=== PATIENT | male | born 1960 | race Caucasian/White ===

== ENCOUNTER 2022-03-18 14:54 | Emergency (ER) | payer OTHER, SELFPAY ==
--- NOTE | ~2022-03-18 | XR_ITS ---
EXAMINATION: XR knee LT min 4V DATE: 03/18/2022 16:00 INDICATION: Left knee pain TECHNIQUE: Five views of the left knee were obtained. COMPARISON: None. FINDINGS: Alignment is normal. No fracture or osteochondral lesion. Joint spaces are normal with no e rosions. No joint effusion/synovitis. There is soft tissue swelling of the knee. IMPRESSION: 1. Soft tissue swelling without acute osseous abnormality. Reviewed, dictated and finalized at location A.
[2022-03-18 15:06] VITALS: BP 128/76; PULSE 70; RESP 16; TEMP 37.1; O2SAT 100
--- NOTE | 2022-03-18 15:30 | ED.LOWEXIN ---
HPI - Extremity Injury (Lower) General Chief Complaint: Extremity Injury, Lower Stated Complaint: Left Knee Pain Time Seen by Provider: 03/18/22 15:31 Source: patient and RN notes reviewed Mode of arrival: ambulatory Limitations: no limitations History of Present Illness HPI Narrative: 62-year-old male presents with concern for left knee pain. Reports yesterday he was walking up the steps and felt a pop and had pain increasing throughout the day that radiates down the leg. He denies any known injury or trauma to the knee He denies any previous knee injury or problems. He denies redness, warmth. Reports swelling MD complaint: knee injury Related Data Home Medications Medication Instructions Recorded Confirmed No Home Medications 03/18/22 03/18/22 Allergies Allergy/AdvReac Type Severity Reaction Status Date / Time No Known Allergies Allergy Verified 03/18/22 15:13 Review of Systems Review of Systems: CONSTITUTIONAL: Denies malaise, chills, sweats, or fever. SKIN: Denies rash or itching, open skin, laceration, abrasion, redness, warmth MUSCULOSKELETAL: Reports left knee pain and swelling NEUROLOGIC: Denies numbness, weakness All systems reviewed & are unremarkable except as noted in HPI and below PMFSH Comments At time of signature, agree with nursing past medical, surgical, social and family history. There is no relevant family history pertinent to the presenting complaint Exam Narrative: GENERAL: Well-appearing, well-nourished, and in no acute distress. HEAD: Normocephalic, atraumatic. EYES: PERRLA, conjunctivae clear NECK: Supple. CHEST: Speaks in full sentences. No respiratory distress. HEART: Regular rate and rhythm. Normal and equal peripheral pulses. EXTREMITIES: Left knee has normal strength and sensation, normal range of motion. Mild medial edema without erythema, ecchymosis. Normal sensation with sensitivity to light touch and pain. Medial tenderness. No open wounds, no skin tenting, no devitalized tissue or atrophy, no trophic changes, no obvious deformity, alignment normal, nearby joints and structures intact. Distal pulses palpable and equal bilaterally, skin warm, dry, pink. Capillary refill less than 3 seconds. Limping gait SKIN: Warm, dry, no rash. NEURO: Alert and oriented x3. PSYCH: Normal mood and affect Course Course Emergency Course: Patient is aware of diagnosis, understands and agrees to treatment plan. Anticipatory guidance given. Patient agrees to follow-up as directed and is aware of reasons to seek care at the emergency department. Portions of this record may have been created with voice recognition software Level of Care: Express Care Visit Vital Signs Vital signs: Vital Signs Temperature 98.7 F 03/18/22 15:06 Pulse Rate 70 03/18/22 15:06 Respiratory Rate 16 03/18/22 15:06 Blood Pressure 128/76 03/18/22 15:06 Pulse Oximetry 100 03/18/22 15:06 Oxygen Delivery Room Air 03/18/22 15:06 Temperature 98.7 F 03/18/22 15:06 Pulse Rate 70 03/18/22 15:06 Respiratory Rate 16 03/18/22 15:06 Blood Pressure 128/76 03/18/22 15:06 Pulse Oximetry 100 03/18/22 15:06 Oxygen Delivery Room Air 03/18/22 15:06 Reviewed. MDM - Extremity Injury (Lower) MDM Narrative Medical decision making narrative: Patients injury and pain is consistent with musculoskeletal etiology. No signs of neurological or vascular compromise on exam. Compartments and tissues are soft without signs of compartment syndrome. Pain is felt appropriate for further evaluation on an outpatient basis. Imaging Data My impression: Images reviewed, interpreted by radiologist, agree, see report. Radiologist's impression: EXAMINATION: XR knee LT min 4V DATE: 03/18/2022 16:00 INDICATION: Left knee pain TECHNIQUE: Five views of the left knee were obtained. COMPARISON: None. FINDINGS: Alignment is normal. No fracture or osteochondral lesion. Joint spaces are normal with no ero
== END 2022-03-18 16:25 | disposition home or self-care (01) ==
PROVIDERS: Emergency Provider Nurse Practitioner
DX: S83.92XA Sprain of unspecified site of left knee, initial encounter (principal); X58.XXXA Exposure to other specified factors, initial encounter; Y93.39 Activity, other involving climbing, rappelling and jumping off
CPT/HCPCS: 73564; 99213; G0463